=== PATIENT | female | born 1990 | race Caucasian/White ===

== ENCOUNTER 2020-05-22 15:59 | Observation (INO) | payer MEDICAID ==
[~2020-05-22] VITALS: Ht 137.2 cm; Wt 65.3 kg
[2020-05-22] MEDS ORDERED: PNV1TABL76 MT (16:44)
== END 2020-05-22 18:00 | disposition home or self-care (01) ==
LOC: 8 EST LDRP 15:59
PROVIDERS: ADMIT Obstetrics & Gynecology; ATTEND Obstetrics & Gynecology
DX: Z34.93 Encounter for supervision of normal pregnancy, unspecified, third trimester (principal); V49.9XXA Car occupant (driver) (passenger) injured in unspecified traffic accident, initial encounter; Y93.89 Activity, other specified; Y92.488 Other paved roadways as the place of occurrence of the external cause
CPT/HCPCS: 59025; G0378; 99281

== ENCOUNTER 2020-06-02 09:47 | Inpatient (IN) | payer MEDICAID ==
[~2020-06-02] VITALS: Ht 137.2 cm; Wt 66.2 kg
[~2020-06-02 09:47] MED LIST: PNV1TABL76 MT
[2020-06-02] MEDS ORDERED: LIDOCAINE HCL 1% 20ML VIAL (Pyxis) INJ INFIL SCH (11:45)
[2020-06-02] MEDS ORDERED: RHO(D) IMMUNE GLOBULIN 300 MCG/SYR IM ONE (11:45)
[2020-06-02 12:26] LABS: BASOPHILS % 0.7 % (0.0-2.0); EOSINOPHILS % 0.3 % (0.0-5.0); HEMATOCRIT. 35.3 % (36.0-48.0); HEMOGLOBIN. 12.2 g/dL (12.0-16.0); LYMPHOCYTES % 18.4 % (20.0-50.0); MEAN CORPUSCULAR HEMOGLOBIN 33.9 pg (28.0-32.0); MEAN CORPUSCULAR VOLUME 98.1 fL (81.0-99.0); MEAN PLATELET VOLUME 9.5 fl (7.4-10.4); NEUTROPHILS % 74.6 % (40.0-76.0); PLATELET 195 x1000/uL (130-400); RED CELL DISTRIBUTION WIDTH 12.9 % (11.6-14.6)
[2020-06-02 12:42] LABS: INR 0.9; PARTIAL THROMBOPLASTIN TIME 24.2 sec (23.4-31.0); PROTHROMBIN TIME 9.8 sec (9.6-11.0)
[2020-06-02 13:02] LABS: CLARITY URINE CLEAR (CLEAR); COLOR URINE YELLOW (YELLOW); KETONES URINE NEGATIVE (NEGATIVE); LEUKOCYTE ESTERASE URINE 2+ (NEGATIVE); NITRITE URINE NEGATIVE (NEGATIVE); OCCULT BLOOD URINE NEGATIVE (NEGATIVE); PH URINE 6.5 (4.5-8.0); PROTEIN URINE NEGATIVE (NEGATIVE); SPECIFIC GRAVITY URINE 1.019 (1.005-1.030); UROBILINOGEN URINE 0.2 E.U./dL (0.2-1.0)
[2020-06-02 13:19] LABS: HEPATITIS B SURFACE ANTIGEN NEGATIVE
[2020-06-02 13:56] LABS: *AMPHETAMINES SCREEN URINE NEGATIVE (NEGATIVE); *BARBITURATES SCREEN URINE NEGATIVE (NEGATIVE); *BENZODIAZEPINES SCREEN URINE NEGATIVE (NEGATIVE); *COCAINE SCREEN URINE NEGATIVE (NEGATIVE); METHADONE URINE SCREEN NEGATIVE (NEGATIVE); OPIATES URINE SCREEN NEGATIVE (NEGATIVE)
[2020-06-02 13:57] LABS: CANNABINOID URINE SCREEN NEGATIVE (NEGATIVE); PHENCYCLIDINE URINE SCREEN NEGATIVE (NEGATIVE)
[2020-06-02] MEDS ORDERED: PENICILLIN G POTASSIUM 5 MMU in DEXT 5% WATER 100 ML IV SCH (14:00)
[2020-06-02 16:41] LABS: CHLORIDE 109 mEq/L (98-107)
[2020-06-02] MEDS ORDERED: PENICILLIN G POTASSIUM 2.5 MMU in DEXTROSE 5% WATER 50 ML IV SCH (18:00)
[2020-06-02] MEDS ORDERED: DEXT 5%/LR + PITOCIN 20UNITS/L 1,000 ML IV ONE (18:00)
[2020-06-02] MEDS ORDERED: BUTORPHANOL TARTRATE 2 MG/ML VIAL IM PRN (18:00)
[2020-06-02] MEDS ORDERED: DEXT 5%/LR + PITOCIN 20UNITS/L 1,000 ML IV NR (18:15)
[2020-06-02] MEDS: LACTATED RINGERS 1,000 ML IV SCH ×2 (18:21→23:46)
[2020-06-03] MEDS ORDERED: ROPIVACAINE HCL 2MG/ML (0.2%) 200ML BOTTLE IR ONE (02:45)
[2020-06-03] MEDS: LACTATED RINGERS 1,000 ML IV SCH ×2 (02:50→02:53)
[2020-06-03] MEDS ORDERED: FENTANYL CITRATE/PF 50MCG/ML 2ML VIAL ONE (02:56)
[2020-06-03] MEDS ORDERED: BUPIVACAINE HCL/PF 0.25% (2.5MG/ML) 10ML ONE (02:56)
[2020-06-03] MEDS ORDERED: LACTATED RINGERS 1,000 ML IV SCH (03:00)
[2020-06-03] MEDS ORDERED: ROPIVACAINE HCL/PF EPIDURAL 200 ML EPI ONE (03:00)
[2020-06-03] MEDS ORDERED: BISACODYL 10MG SUPP PR PRN (05:00)
[2020-06-03] MEDS ORDERED: IBUPROFEN 400MG TABLET PO PRN (05:00)
[2020-06-03] MEDS ORDERED: HEMORRHOIDAL SUPP PR PRN (05:00)
[2020-06-03] MEDS ORDERED: DEXT 5%/LR + PITOCIN 20UNITS/L 1,000 ML IV SCH (05:00)
[2020-06-03] MEDS ORDERED: DIPHENHYDRAMINE 25MG CAPSULE PO PRN (05:00)
[2020-06-03] MEDS ORDERED: BENZOCAINE/LANOLIN/ALOE VERA SPRAY TOP PRN (05:00)
[2020-06-03] MEDS ORDERED: GLYCERIN/WITCH HAZEL LEAF MEDICATED PAD TOP PRN (05:00)
[2020-06-03] MEDS ORDERED: LANOLIN OINT 7GM TUBE TOP PRN (05:00)
[2020-06-03] MEDS ORDERED: RHO(D) IMMUNE GLOBULIN 300 MCG/SYR IM PRN (05:00)
[2020-06-03 07:30] VITALS: BP 114/67
[2020-06-03] MEDS ORDERED: MAGNESIUM/ALUMINUM HYDROXIDE/SIMETHICONE 30ML UDC PO SCH (07:30)
[2020-06-03] MEDS ORDERED: SIMETHICONE 80MG TABLET CHEW PO SCH (08:00)
[2020-06-03] MEDS: IBUPROFEN 800MG TABLET PO PRN ×2 (08:19→22:11)
[2020-06-03] MEDS: PRENATAL VIT/FE FUMARATE/FA TABLET PO SCH (08:19)
[2020-06-03 08:30] VITALS: BP 100/50
[2020-06-03 09:30] VITALS: BP 103/53
[2020-06-03 16:08] VITALS: BP 116/69
[2020-06-03 20:15] VITALS: BP 105/66
[2020-06-03] MEDS ORDERED: DOCUSATE SODIUM 100MG CAPSULE PO SCH (21:00)
[2020-06-04 04:25] VITALS: BP 110/69
[2020-06-04] MEDS ORDERED: ACETAMINOPHEN WITH CODEINE 300/30MG TABLET PO PRN (05:00)
[2020-06-04 06:02] LABS: BASOPHILS % 0.5 % (0.0-2.0); EOSINOPHILS % 1.1 % (0.0-5.0); HEMATOCRIT. 29.9 % (36.0-48.0); HEMOGLOBIN. 10.3 g/dL (12.0-16.0); LYMPHOCYTES % 24.6 % (20.0-50.0); MEAN CORPUSCULAR HEMOGLOBIN 34.7 pg (28.0-32.0); MEAN CORPUSCULAR VOLUME 100.9 fL (81.0-99.0); MEAN PLATELET VOLUME 9.1 fl (7.4-10.4); MONOCYTES % 6.7 % (2.0-8.0); NEUTROPHILS % 67.1 % (40.0-76.0); PLATELET 157 x1000/uL (130-400); RED BLOOD CELL COUNT 2.96 mill/uL (4.2-5.4); RED CELL DISTRIBUTION WIDTH 12.9 % (11.6-14.6)
[2020-06-04] MEDS: IBUPROFEN 800MG TABLET PO PRN (06:22)
[2020-06-04] MEDS ORDERED: FERROUS SULFATE 325MG TABLET PO SCH (07:30)
[2020-06-04] MEDS: PRENATAL VIT/FE FUMARATE/FA TABLET PO SCH (07:52)
[2020-06-04 09:26] VITALS: BP 104/64
[2020-06-04] MEDS ORDERED: IBUP-2030 PO (16:46)
== END 2020-06-04 17:25 | disposition home or self-care (01) | DRG 560 ==
LOC: 8EST NSY 09:47 → OBSVTOIN 09:47 → 8 EST A/PP 10:17 → 8 EST LDRP 20:00 → 8EST 06-03 06:45
PROVIDERS: ADMIT Obstetrics & Gynecology; ATTEND Obstetrics & Gynecology
PROC: 10E0XZZ Delivery of Products of Conception, External Approach (ICD-10-PCS; principal; 2020-06-03)
PROC: 0KQM0ZZ Repair Perineum Muscle, Open Approach (ICD-10-PCS; 2020-06-03)
DX: O70.1 Second degree perineal laceration during delivery (principal); D64.9 Anemia, unspecified; O90.81 Anemia of the puerperium; Z3A.39 39 weeks gestation of pregnancy; Z37.0 Single live birth
CPT/HCPCS: 36415; 76805; 80053; 80305; 81003; 84550; 85025; 85384; 86592; 86703; 86762; 86850; 86900; 87340; G0378; J2540; J2590; J2795; J3010; J3490; J7060; J7120